=== PATIENT | female | born 1970 | race Caucasian/White ===

== ENCOUNTER 2021-11-19 18:31 | Emergency (ER) | payer OTHER ==
[~2021-11-19] VITALS: Ht 157.5 cm; Wt 73.5 kg
[2021-11-19 18:44] VITALS: BP 122/72
--- NOTE | 2021-11-19 18:45 | ED General ---
General Stated Complaint: COUGH / SORE THROAT Source of Information: Patient Exam Limitations: No Limitations History of Present Illness Date Seen by Provider: Nov 19, 2021 Time Seen by Provider: 18:40 Initial Comments sore throat cough x1 day. 2 covid shots. Timing/Duration: 1-2 Days Severity: Moderate Associated Systoms: Denies Symptoms Allergies and Home Medications Patient Home Medication List Home Medication List Reviewed: Yes Review of Systems Review of Systems Constitutional: see HPI EENTM: see HPI Respiratory: no symptoms reported Cardiovascular: no symptoms reported Genitourinary: no symptoms reported Musculoskeletal: no symptoms reported Skin: no symptoms reported Psychiatric/Neurological: No Symptoms Reported Physical Exam Vital Signs Vital Signs - First Documented 11/19/21 18:44 Temp 37.3 Pulse 85 Resp 18 B/P (MAP) 122/72 (89) Pulse Ox 97 O2 Delivery Room Air Capillary Refill : Height, Weight, BMI Height: '" Weight: lbs. oz. kg; BMI Method: General Appearance: No Apparent Distress, WD/WN Neck: Full Range of Motion, Normal Inspection Respiratory: Normal Breath Sounds, No Accessory Muscle Use, No Respiratory Distress Cardiovascular: Regular Rate, Rhythm, Normal Peripheral Pulses Gastrointestinal: Normal Bowel Sounds, Non Tender, Soft Extremity: Normal Capillary Refill, Normal Inspection Neurologic/Psychiatric: Alert, Oriented x3 Skin: Normal Color, Warm/Dry Progress/Results/Core Measures Suspected Sepsis SIRS Temperature: Pulse: Respiratory Rate: Blood Pressure / Mean: Results/Orders Lab Results Laboratory Tests Test 11/19/21 18:40 Range/Units Influenza Type A (RT-PCR) Not Detected Not Detecte Influenza Type B (RT-PCR) Not Detected Not Detecte SARS-CoV-2 RNA (RT-PCR) Not Detected Not Detecte My Orders Orders - MAURY KRUGER APRN Covid 19 Inhouse Test (11/19/21 18:43) Influenza A And B By Pcr (11/19/21 18:43) Vital Signs/I&O 11/19/21 18:44 Temp 37.3 Pulse 85 Resp 18 B/P (MAP) 122/72 (89) Pulse Ox 97 O2 Delivery Room Air Capillary Refill : Departure Impression Primary Impression: Viral syndrome Disposition: 01 HOME, SELF-CARE Condition: Stable Departure-Patient Inst. Decision time for Depature: 20:24 Referrals: SHERIDAN ADAMS DO (PCP/Family) Primary Care Physician Patient Instructions: Viral Syndrome (DC) Add. Discharge Instructions: 1. Tylenol and ibuprofen for fevers or body aches. Follow-up with your doctor next week. Return to ER for any worsening. Work/School Note: Work Release Form Date Seen in the Emergency Department: Nov 19, 2021 Return to Work: Nov 21, 2021 MAURY KRUGER APRN Nov 19, 2021 18:45
== END 2021-11-19 20:30 | disposition home or self-care (01) ==
LOC: ER 18:35
DX: B34.9 Viral infection, unspecified (principal); Z20.822 Contact with and (suspected) exposure to COVID-19
CPT/HCPCS: 87636; 99283